=== PATIENT | female | born 1945 | race Caucasian/White ===

== ENCOUNTER → 2016-08-07 | Outpatient (CLI) | payer MEDICARE, OTHER | LOC: GMAJ 17:34 | PROVIDERS: ATTEND Family Medicine | DX: D37.6 Neoplasm of uncertain behavior of liver, gallbladder and bile ducts (principal); R10.811 Right upper quadrant abdominal tenderness ==

== ENCOUNTER → 2017-02-24 | Outpatient (CLI) | payer MEDICARE, OTHER | END | disposition home or self-care (01) | LOC: GMAJ 10:20 | PROVIDERS: ATTEND Family Medicine | DX: I10 Essential (primary) hypertension (principal) ==

== ENCOUNTER → 2017-03-31 | Outpatient (CLI) | payer MEDICARE, OTHER ==
--- NOTE | 2017-04-01 14:44 | US ---
EXAM DESCRIPTION: Carotid Duplex: ULTRASOUND. CLINICAL HISTORY: OCCLUSION AND STENOSIS OF CAROTID COMPARISON: MRI brain 01/05/2016. TECHNIQUE: Transcutaneous scanning utilizing 2-dimensional and Doppler modes to evaluate the bilateral carotid systems and vertebral arteries. Percentage of diameter of stenosis or no stenosis recorded will be based upon NASCET criteria. FINDINGS: Peak systolic/end diastolic (CM-Sec) CCA Right 83/18 Left 110/24. ICA Right proximal 64/24, mid 89/34. Left proximal 65/24, mid 77/30. Vertebral Right 30/6 Left 35/12. ECA (PS Only) Right 56 left 74. ICA/CCA peak systolic ratio: Right 1.1 Left 0.7 ICA/CCA end diastolic ratio: Right 1.9 Left 1.2 Vertebral arteries: antegrade flow. Comments: Atherosclerotic calcification and narrowing of the bilateral common carotid bifurcations. Spectral broadening in the proximal right ICA. Right proximal ICA area stenosis 26%; Diameter stenosis 29%. Left common carotid bulb area stenosis 20%; diameter stenosis 30%. Left proximal ICA diameter stenosis 24%; area stenosis 20%. Spectral broadening in the proximal right ICA. IMPRESSION: 1. Doppler evaluation of the bilateral carotid systems and vertebral arteries shows no hemodynamically significant stenoses. 2. No significant amount of plaque seen in the carotid arteries bilaterally. Bilateral vertebral arteries showed antegrade-cephalad flow. Electronically signed by: Rafa Beal MD 04/01/2017 2:43 PM [employer]
== END ==
LOC: US 13:30
PROVIDERS: ATTEND Family Medicine
DX: I65.21 Occlusion and stenosis of right carotid artery (principal)

== ENCOUNTER → 2017-07-02 | Outpatient (CLI) | payer MEDICARE, OTHER | LOC: GMAJ 10:42 | PROVIDERS: ATTEND Family Medicine | DX: I10 Essential (primary) hypertension (principal) ==

== ENCOUNTER → 2018-07-21 | Outpatient (CLI) | payer MEDICARE, OTHER ==
--- NOTE | 2018-07-21 19:45 | CT ---
EXAM DESCRIPTION: Chest w/Contrast : Computed Tomography. 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 2.5 mm lung algorithm axial reconstructions. Coronal and sagittal 2.0 Mm reconstructions. No adverse reactions. Total Exam DLP: 605.93 mGy-cm. This exam was performed according to our departmental dose-optimization program which includes automated exposure control, adjustment of the mA and/or kV according to patient size and/or use of iterative reconstruction technique; to reduce radiation dose to as low as reasonably achievable (ALARA). Nodule measurements under 10 mm are given as mean value of 3 axes diameters. FINDINGS: Lungs and large airways: Pleural parenchymal scar right lower lobe. Bilateral minimally dense mosaic pattern in the lung parenchyma. 4 mm nodule associated with the lateral horizontal fissure near the junction with the right major fissure. No abnormal nodules in the lungs. No masses or focal infiltrates. Pleural spaces: Bilateral scattered areas of focal thickening with no effusion or pneumothorax. Mediastinum and Cristina: No enlarged lymph nodes or soft tissue masses. Great vessels and Heart: Atherosclerotic calcification proximal brachiocephalic vessels in the thoracic aorta. Soft tissues of neck base, axillae, and chest wall: No enlarged lymph nodes or soft tissue masses. Small left thyroid lobe. Upper abdomen: 2.2 cm subcapsular hepatic mass. Anterior right lobe with stable size but increased central calcification since the prior study. No fatty stranding or free fluid in the included peritoneal cavity. Spleen and adrenal glands unremarkable. Gallbladder visualized. Abdominal aortic calcifications also involving the renal arteries and origins of the celiac axis and SMA. Osseous structures: Bilateral glenohumeral joint arthrosis more on the right. Thoracic kyphosis and spondylosis. Sternoclavicular arthrosis. No blastic or lytic lesions. IMPRESSION: Minimal parenchymal changes in the lungs but no abnormal nodules, masses, or focal infiltrates. No hilar mediastinal or soft tissue adenopathy or and soft tissue masses. Electronically signed by: Rafa Beal MD 07/21/2018 7:42 PM CDT
== END ==
LOC: CT 09:38
PROVIDERS: ATTEND Family Medicine
DX: C77.1 Secondary and unspecified malignant neoplasm of intrathoracic lymph nodes (principal)

== ENCOUNTER → 2019-05-13 | Outpatient (CLI) | payer MEDICARE, OTHER ==
--- NOTE | 2019-05-14 11:03 | MRI ---
EXAM DESCRIPTION: Brain w/oContrast: MRI. 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 TECHNIQUE: Multiplanar, high-field MRI unit, multiple diffusion sequences, multiple conventional sequences without contrast. FINDINGS: Stable bilateral hyperintense FLAIR and T2-weighted signal in the periventricular white matter which is confluent. Also stable bilateral foci of similar signal in the subcortical white matter and centrum semiovale. No hemorrhage, no cerebral edema, no mass-effect. Mild increase in focal hyperintense T2 and FLAIR signal in the basal ganglia, more right than left, compared to the prior study no hemorrhage or mass effect. Stable hyperintense FLAIR and T2 signal in the manolo of the brainstem, with no acute lesions. No hemorrhage or mass effect. Normal signal in the bilateral cerebellar hemispheres. No hemorrhage, no parenchymal edema, no mass-effect. Concordance of the diffusion and non-diffusion sequences with no diffusion restriction. Cortical sulci, ventricles, and other CSF spaces, and the subdural spaces are normally configured for patients age with no interval change. No effacement or displacement. No midline shift. No extra-axial hemorrhage. Normal flow signal void in the major vessels of the quileute Quiroz, and the venous sinuses. IACs are symmetric bilaterally. Minimal hyperintense T2 signal in the left mastoid air cells. This is chronic. No mass effect in the bilateral cerebellopontine angles. Pituitary gland occupies less than half of the sella. No interval change. Base of the cerebellar tonsils is at the level of the foramen magnum. Paranasal sinuses are unremarkable.. The bony calvarium is intact. Minimal edema in the distal optic nerve sheaths, stable since the prior study. IMPRESSION: 1. Abnormal signal in the periventricular white matter/christiansen radiata, centrum semiovale bilaterally, and subcortical white matter bilaterally most likely related to cerebral microvascular disease and aging. No mass effect, no shift, no hemorrhage, no edema. Stable signal in the manolo of the brainstem. 2. Increased ischemic process in the bilateral basal ganglia more on the right, but no infarction. No diffusion restriction on diffusion MRI. 3. Small pituitary gland and edema in the distal optic nerve sheaths at the entry into the optic globes is unchanged from the prior study. Electronically signed by: Rafa Beal MD 05/14/2019 11:02 AM [facility]
== END ==
LOC: MRI 09:00
PROVIDERS: ATTEND Family Medicine
DX: I63.81 Other cerebral infarction due to occlusion or stenosis of small artery (principal); H47.10 Unspecified papilledema; E23.7 Disorder of pituitary gland, unspecified